=== PATIENT | male | born 1960 | race African-American/Black ===

== ENCOUNTER 2018-02-26 21:43 | Emergency (ER) | payer OTHER ==
[2018-02-26] MEDS ORDERED: chlordiazePOXIDE HCL 25 MG CAPSULE PO ONE (23:07)
[2018-02-26] MEDS ORDERED: SODIUM CHLORIDE 1,000 ML IV STA (23:07)
[2018-02-26] MEDS ORDERED: chlordiazePOXIDE HCL 25 MG CAPSULE ONE (23:22)
--- NOTE | 2018-02-26 23:23 | PDOC ---
*Physical Exam - Physical Exam Comments: 02/26/18 23:22 The patient was examined by KALIE Mcallister under my direct supervision. I personally evaluated the patient. I concur with the above findings and the plan of care. ED Treatment Course - LABORATORY CBC & Chemistry Diagram: 02/27/18 00:00 02/27/18 00:00 *DC/Admit/Observation/Transfer Diagnosis at time of Disposition: Alcohol intoxication - Discharge Dispostion Disposition: HOME Condition at time of disposition: Stable - Referrals - Patient Instructions Printed Discharge Instructions: DI for Alcohol Abuse - Post Discharge Activity
--- NOTE | 2018-02-26 23:25 | PDOC ---
History of Present Illness - General Chief Complaint: Alcohol intoxication Stated Complaint: Alcohol intoxication Time Seen by Provider: 02/26/18 22:49 History Source: Patient Exam Limitations: No Limitations Past History - Past Medical History Allergies/Adverse Reactions: Allergies Allergy/AdvReac Type Severity Reaction Status Date / Time codeine [Codeine] Allergy Intermediate passed out Verified 02/26/18 20:31 Home Medications: Ambulatory Orders NK [No Known Home Medication] 02/26/18 Anemia: No Asthma: No Cancer: No Cardiac Disorders: No CVA: No COPD: No CHF: No Dementia: No Diabetes: No GI Disorders: No Disorders: No HTN: Yes (BP: 132/82) Hypercholesterolemia: No Kidney Stones: No Liver Disease: No Seizures: No Thyroid Disease: No - Surgical History Abdominal Surgery: No Appendectomy: No Cardiac Surgery: No Cholecystectomy: No Lung Surgery: No Neurologic Surgery: No Orthopedic Surgery: No - Reproductive History Testicular Surgery: No - Immunization History Td Vaccination: Yes Immunization Up to Date: Yes - Suicide/Smoking/Psychosocial Hx Smoking Status: Yes Smoking History: Never smoked Have you smoked in the past 12 months: No Number of Cigarettes Smoked Daily: 0 'Breaking Loose' booklet given: 04/04/14 Hx Alcohol Use: Yes Drug/Substance Use Hx: No Substance Use Type: Alcohol Hx Substance Use Treatment: Yes *Physical Exam - Physical Exam General Appearance: Yes: Intoxicated (Appears intoxicated). No: Apparent Distress, Disheveled HEENT: positive: OSWALDO Neck: positive: Supple. negative: Rigid, Rigidity, Tender midline Respiratory/Chest: positive: Lungs Clear, Normal Breath Sounds. negative: Respiratory Distress Cardiovascular: positive: Regular Rhythm, Regular Rate, S1, S2. negative: Murmur Gastrointestinal/Abdominal: positive: Normal Bowel Sounds, Soft. negative: Tender, Distended, Guarding, Rebound Extremity: positive: Other (No evidence of trauma to extremities; BLE venous stasis, no open wounds noted) Neurologic: positive: Fully Oriented, Alert ED Treatment Course - LABORATORY CBC & Chemistry Diagram: 02/27/18 00:00 02/27/18 00:00 Medical Decision Making - Medical Decision Making 57 y/o M with hx alcohol abuse presents as walked to [facility] but was sent to ED due to elevated VINNY. Patient mentions his last drink was yesterday morning. Mentions he has been drinking heavily for the past few days, but did not drink today. Mentions he wants to quit drinking and is interested in detox. Denies fever, sob, cp, abd pain, n/v, headache. On PE, patient with no evidence of withdrawal and is currently Ox3 Plan: CBC, CMP, alcohol level, Mg, IVF, PO Librium 02/26/18 23:46 Labs reviewed - K was repleted, Mg normal; LFTs elevated, but have been elevated in the past (were higher in the past) Patient with slight diaphoresis, tachycardia (HR in 115), BP normal; no tongue fasciculation or hand tremors noted To prevent withdrawal, patient given Ativan 2 mg and another dose of PO Librium 50 mg 02/27/18 03:00 Patient reassessed, feeling better HR 95-99; BP normal No evidence of withdrawal noted Stable for d/c 02/27/18 06:35 *DC/Admit/Observation/Transfer Diagnosis at time of Disposition: Alcohol intoxication Qualifiers: Complication of substance-induced condition: uncomplicated Qualified Code(s): F10.920 - Alcohol use, unspecified with intoxication, uncomplicated - Discharge Dispostion Disposition: HOME Condition at time of disposition: Stable Decision to Admit order: No - Referrals - Patient Instructions Printed Discharge Instructions: DI for Alcohol Abuse - Post Discharge Activity
[2018-02-26] MEDS ORDERED: FOLIC ACID INJECTION - 1 MG, THIAMINE HCL 100 MG, MULTIVIT INJECTION ADULT 10 ML in SOD... IVPB ONE (23:26)
[2018-02-27 01:09] LABS: BASO % 0.8 % (0-2.0); EOS % 0.2 % (0-4.5); HEMATOCRIT 40.6 % (35.4-49); HEMOGLOBIN 13.5 GM/dL (11.7-16.9); LYMPH % 46.2 % (8-40); MCH 27.1 pg (25.7-33.7); MCHC 33.3 g/dl (32.0-35.9); MEAN CELL VOLUME 81.2 fl (80-96); MEAN PLT VOLUME 11.4 fl (7.5-11.1); MONO % 7.8 % (3.8-10.2); PLATELET COUNT 77 K/MM3 (134-434); RDW 14.6 % (11.9-15.9); WHITE BLOOD COUNT 4.3 K/mm3 (4.0-10.0)
[2018-02-27 01:16] VITALS: BMI 29.5
[2018-02-27 01:57] LABS: ALBUMIN 3.9 g/dl (3.4-5.0); ALK PHOS 76 U/L (45-117); ANION GAP 13 MMOL/L (8-16); BLOOD UREA NITROGEN 11 mg/dL (7-18); CALCIUM 8.2 mg/dL (8.5-10.1); CHLORIDE 96 mmol/L (98-107); CO2 28 mmol/L (21-32); CREATININE 0.7 mg/dL (0.55-1.3); GLUCOSE,RANDOM 109 mg/dL (74-106); MAGNESIUM 2.3 mg/dL (1.8-2.4); POTASSIUM 3.1 mmol/L (3.5-5.1); SGOT/AST 212 U/L (15-37); SGPT/ALT 84 U/L (13-61); SODIUM 138 mmol/L (136-145); TOT PROT 8.2 g/dl (6.4-8.2)
[2018-02-27 01:58] VITALS: BP 111/76; PULSE 101; TEMP 98
[2018-02-27] MEDS ORDERED: POTASSIUM CHLORIDE ORAL LIQUID 20 MEQ/15 ML PO ONE (02:15)
[2018-02-27] MEDS ORDERED: POTASSIUM CHLORIDE ORAL LIQUID 20 MEQ/15 ML ONE (02:28)
[2018-02-27] MEDS ORDERED: chlordiazePOXIDE HCL 25 MG CAPSULE PO ONE (03:10)
[2018-02-27] MEDS ORDERED: chlordiazePOXIDE HCL 25 MG CAPSULE ONE (03:13)
[2018-02-27] MEDS ORDERED: LORazepam 2 MG/ML SDV VIAL ONE (03:13)
== END 2018-02-27 06:59 | disposition home or self-care (01) ==
LOC: JER 21:43
PROC: 3E033GC Introduction of Other Therapeutic Substance into Peripheral Vein, Percutaneous Approach (ICD-10-PCS; principal; 2018-02-26)
PROC: 3E033NZ Introduction of Analgesics, Hypnotics, Sedatives into Peripheral Vein, Percutaneous Approach (ICD-10-PCS; 2018-02-26)
DX: F10.920 Alcohol use, unspecified with intoxication, uncomplicated (principal); I10 Essential (primary) hypertension
CPT/HCPCS: 36415; 80053; 80307; 83735; 85025; 96365; 96375; 99283-25; J7030

== ENCOUNTER 2018-02-27 09:52 | Emergency (ER) | payer OTHER ==
[2018-02-27 10:11] VITALS: TEMP 98.2; BMI 29.5
[2018-02-27] MEDS ORDERED: chlordiazePOXIDE HCL 25 MG CAPSULE PO ONE (10:43)
[2018-02-27] MEDS ORDERED: chlordiazePOXIDE HCL 25 MG CAPSULE ONE (10:56)
--- NOTE | 2018-02-27 10:59 | PDOC ---
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 detox secondary to level of intoxication. Patient states was fine sitting waiting for his mother who never came when he developed slight tremors causing him to reregister here in the ER. Patient does want to go to a detox program denies any chest pain, shortness of breath, headache, nausea, diarrhea or dizziness. Timing/Duration: changing over time Severity: mild Associated Symptoms: reports: denies symptoms Past History - Travel Traveled outside of the country in the last 30 days: No - Past Medical History Allergies/Adverse Reactions: Allergies Allergy/AdvReac Type Severity Reaction Status Date / Time codeine [Codeine] Allergy Intermediate passed out Verified 02/27/18 10:11 Home Medications: Ambulatory Orders NK [No Known Home Medication] 02/26/18 Anemia: No Asthma: No Cancer: No Cardiac Disorders: No CVA: No COPD: No CHF: No Dementia: No Diabetes: No GI Disorders: No Disorders: No HTN: Yes (BP: 132/82) Hypercholesterolemia: No Kidney Stones: No Liver Disease: No Seizures: No Thyroid Disease: No - Surgical History Abdominal Surgery: No Appendectomy: No Cardiac Surgery: No Cholecystectomy: No Lung Surgery: No Neurologic Surgery: No Orthopedic Surgery: No - Reproductive History Testicular Surgery: No - Immunization History Td Vaccination: Yes Immunization Up to Date: Yes - Suicide/Smoking/Psychosocial Hx Smoking Status: Yes Smoking History: Never smoked Have you smoked in the past 12 months: No Number of Cigarettes Smoked Daily: 0 Information on smoking cessation initiated: No 'Breaking Loose' booklet given: 04/04/14 Hx Alcohol Use: No Drug/Substance Use Hx: No Substance Use Type: Alcohol Hx Substance Use Treatment: Yes Patient Lives Alone: No Lives with/in: parents (mother) Review of Systems - Review of Systems Able to Perform ROS?: No Constitutional: No: Symptoms Reported, Weakness HEENTM: No: Symptoms Reported Respiratory: No: Symptoms reported Cardiac (ROS): No: Symptoms Reported ABD/GI: No: Symptoms Reported : No: Symptoms Reported Musculoskeletal: No: Symptoms Reported Integumentary: No: Symptoms Reported Neurological: Yes: Tremors Endocrine: No: Symptoms Reported *Physical Exam - Vital Signs Last Vital Signs Temp Pulse Resp BP Pulse Ox 98.2 F 109 H 16 120/80 100 02/27/18 09:52 02/27/18 09:52 02/27/18 09:52 02/27/18 09:52 02/27/18 09:52 - Physical Exam General Appearance: Yes: Nourished, Appropriately Dressed, Alcohol on Breath. No: Apparent Distress HEENT: negative: Pale Conjunctivae Neck: positive: Supple Respiratory/Chest: positive: Lungs Clear, Normal Breath Sounds. negative: Respiratory Distress, Accessory Muscle Use Cardiovascular: positive: Regular Rhythm, Tachycardia. negative: Murmur Gastrointestinal/Abdominal: positive: Soft. negative: Tenderness Musculoskeletal: negative: CVA Tenderness Extremity: positive: Normal Capillary Refill. negative: Pedal Edema Neurologic: positive: Normal Mood/Affect, Motor Strength 5/5 (ambulatory), Other (noted fine tremors to BUE during exam) Moderate Sedation - Procedure Monitoring Vital Signs: Procedure Monitoring Vital Signs Temperature 98.2 F 02/27/18 09:52 Pulse Rate 109 H 02/27/18 09:52 Respiratory Rate 16 02/27/18 09:52 Blood Pressure 120/80 02/27/18 09:52 O2 Sat by Pulse Oximetry (%) 100 02/27/18 09:52 Medical Decision Making - Medical Decision Making 02/27/18 10:18 Chief complaint: requesting detox and something for the "shakes" Exam: patient with noted fine tremors to bilateral upper extremities. Plan: Librium 25 mg ordered since he was given 1 mg Ativan along with 50 mg of Librium last evening. Patient will be sent directly to [facility] 02/27/18 11:19 Patient will be sent with security to [facility]. *DC/Admit/Observation/Transfer Diagnosis at time of Disposition: Alcohol dependence, episodic drinking behavior - Discharge Dispostion Disposition: HOME Condition at time of disposition: Good - Referrals - Patient Instructions Printed Discharge Instructions: DI for Alcohol Abuse Additional Instructions: Please utilize all resources to avoid alcohol use. Your given a dose of Librium at 11 AM . - Post Discharge Activity
[2018-02-27 11:02] VITALS: BP 117/86; PULSE 115
== END 2018-02-27 11:09 | disposition home or self-care (01) ==
LOC: JER 09:52
DX: F10.20 Alcohol dependence, uncomplicated (principal)
CPT/HCPCS: 99281-25

== ENCOUNTER 2018-02-27 12:27 | Inpatient (IN) | payer OTHER ==
[2018-02-27 12:55] VITALS: BMI 31.8
--- NOTE | 2018-02-27 13:09 | HP ---
CIWA Score Nausea/Vomitin Muscle Tremors: 7-Severe,w/o Arm Extended Anxiety: 4-Mod. Anxious/Guarded Agitation: 2 Paroxysmal Sweats: 4-Forehead w/Sweat Beads Orientation: 3-Disoriented Date>2 days Tacttile Disturbances: 0-None Auditory Disturbances: 0-None Visual Disturbances: 0-None Headache: 2-Mild CIWA-Ar Total Score: 24 - Admission Criteria OASAS Guidelines: Admission for Medically Managed Detox: Requires at least one of the followin. CIWA greater than 12 2. Seizures within the past 24 hours 3. Delirium tremens within the past 24 hours 4. Hallucinations within the past 24 hours 5. Acute intervention needed for co occurring medical disorder 6. Acute intervention needed for co occurring psychiatric disorder 7. Severe withdrawal that cannot be handled at a lower level of care (continued vomiting, continued diarrhea, abnormal vital signs) requiring intravenous medication and/or fluids 8. 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 Current VINNY 0.071 , pt states he was in [facility] since yesterday evening , sent from this facility . Utox + bzo PMHX : PVD PShx :denies Psych : denies Meds : denies , seeing vascular , was given inez boot in the past , currently HARJINDER bandage . SHx : lives w/ sister , unemployed Exam Limitations: Clinical Condition, Intoxication - Ebola screening Have you traveled outside of the country in the last 21 days: No Have you had contact with anyone from an Ebola affected area: No Have you been sick,other than usual withdrawal symptoms: No - Review of Systems Constitutional: See HPI EENT: reports: No Symptoms Reported Respiratory: reports: No Symptoms reported Cardiac: reports: No Symptoms Reported GI: reports: See HPI, Nausea : reports: No Symptoms Reported Musculoskeletal: reports: Joint Pain Integumentary: reports: See HPI, Dryness, Rash, Other (PVD) Neuro: reports: See HPI, Tremors, Unsteady Gait, Ataxia Endocrine: reports: No Symptoms Reported Psychiatric: reports: Orientated x3, Agitated, Anxious Patient History - Patient Medical History Hx Anemia: No Hx Asthma: No Hx Chronic Obstructive Pulmonary Disease (COPD): No Hx Cancer: No Hx Cardiac Disorders: No Hx Congestive Heart Failure: No Hx Hypertension: No Hx Hypercholesterolemia: No Hx Pacemaker: No HX Cerebrovascular Accident: No Hx Seizures: No Hx Dementia: No Hx Diabetes: No Hx Gastrointestinal Disorders: No Hx Liver Disease: No Hx Genitourinary Disorders: No Hx Sexually Transmitted Disorders: No Hx Renal Disease (ESRD): No Hx Thyroid Disease: No Hx Human Immunodeficiency Virus (HIV): No (negative) Hx Hepatitis C: No Hx Depression: No Hx Suicide Attempt: No Hx Bipolar Disorder: No Hx Schizophrenia: No - Patient Surgical History Past Surgical History: No Hx Neurologic Surgery: No Hx Cataract Extraction: No Hx Cardiac Surgery: No Hx Lung Surgery: No Hx Breast Surgery: No Hx Breast Biopsy: No Hx Abdominal Surgery: No Hx Appendectomy: No Hx Cholecystectomy: No Hx Genitourinary Surgery: No Hx Section: No Hx Orthopedic Surgery: No Anesthesia Reaction: No - PPD History Previous Implant?: Yes Documented Results: Negative w/o proof Implanted On Prior [facility] Admission?: No Date: 01/20/14 Results: 0 MM - Smoking Cessation Smoking history: Never smoked Have you smoked in the past 12 months: No Aproximately how many cigarettes per day: 0 Hx Chewing Tobacco Use: No - Substances Abused Alcohol Route: Oral Frequency: Daily Amount used: 2 pints vodka Age of first use: 20 Date of Last Use: 02/27/18 Family Disease History - Family Disease History Family Disease History: Diabetes: Mother Admission Physical Exam S - Vital Signs Vital Signs: Vital Signs - 24 hr 02/27/18 12:51 Temperature 99.3 F Pulse Rate 99 H Respiratory 18 Rate Blood Pressure 134/81 - Physical General Appearance: Yes: Disheveled, Severe Distress, Intoxicated, Tremorous, Sweating, Anxious HEENTM: Yes: EOMI, Hearing grossly Normal, Normocephalic, Normal Voice Respiratory: Yes: Chest Non-Tender, Lungs Clear, Normal Breath Sounds Neck: Yes: No masses,lesions,Nodules, Trachea in good position Breast: Yes: Breast Exam Deferred Cardiology: Yes: Regular Rhythm, Regular Rate, S1, S2, Tachycardia Abdominal: Yes: Normal Bowel Sounds, Non Tender, Soft Genitourinary: Yes: Within Normal Limits Back: Yes: Normal Inspection Musculoskeletal: Yes: full range of Motion, Other (staggering gait) Extremities: Yes: Pedal Edema, Erythema, Inflammation, Other (barrera LE edema, hyperpigmentation , chronic stasis changes) Neurological: Yes: Confused, Disoriented Integumentary: Yes: Dry, Erythema, Rash, Other (as above) - Diagnostic (1) Alcohol intoxication Current Visit: No Status: Acute Qualifiers: Complication of substance-induced condition: uncomplicated Qualified Code(s ): F10.920 - Alcohol use, unspecified with intoxication, uncomplicated (2) Alcohol dependence Current Visit: No Status: Acute Qualifiers: Substance use status: in withdrawal BHS Breath Alcohol Content Breath Alcohol Content: 0.071 Urine Drug Screen - Results Urine Drug Screen Results: BZO-Benzodiazepines
[2018-02-27] MEDS ORDERED: MAGNESIUM HYDROX 2400MG/30ML ORAL SUSPENSION 30 ML CUP PO PRN (13:15)
[2018-02-27] MEDS ORDERED: P-EPHED 60MG/TRIPROLIDI 2.5MG TABLET PO PRN (13:15)
[2018-02-27] MEDS ORDERED: ACETAMINOPHEN 325 MG TABLET (FP) PO PRN (13:15)
[2018-02-27] MEDS ORDERED: MAG HYDROX/AL HYDROX/SIMETH 30 ML UNIT-DOSE CUP PO PRN (13:15)
[2018-02-27] MEDS ORDERED: IBUPROFEN 400 MG TABLET (FP) PO PRN (13:15)
[2018-02-27] MEDS ORDERED: MENTHOL/PHENOL 1 EACH UD MM PRN (13:15)
[2018-02-27] MEDS ORDERED: guaiFENesin/D-METHORPHAN HB 10 ML UNIT-DOSE CUPS PO PRN (13:15)
[2018-02-27] MEDS ORDERED: MAGNESIUM CITRATE 300 ML BOTTLE PO PRN (13:15)
[2018-02-27] MEDS ORDERED: METOPROLOL TARTRATE 25 MG TABLET (FP) PO ONE (14:00)
[2018-02-27] MEDS ORDERED: chlordiazePOXIDE HCL 25 MG CAPSULE PO ONE (14:00)
[2018-02-27] MEDS: chlordiazePOXIDE HCL 25 MG CAPSULE PO SCH ×2 (17:26→22:28)
[2018-02-27] MEDS: chlordiazePOXIDE HCL 25 MG CAPSULE PO PRN (21:13)
[2018-02-27] MEDS: MELATONIN 5 MG TABLETS PO PRN (22:28)
[2018-02-27] MEDS: THIAMINE HCL 100 MG TABLET (FP) PO SCH (22:28)
[2018-02-28] MEDS: chlordiazePOXIDE HCL 25 MG CAPSULE PO SCH ×4 (05:53→22:30)
[2018-02-28] MEDS ORDERED: TRIMETHOBENZAMIDE HCL 200MG/2ML INJ IM ONE (10:30)
[2018-02-28 10:58] LABS: HEMOGLOBIN 12.5 GM/dL (11.7-16.9); MCH 25.8 pg (25.7-33.7); MCHC 31.2 g/dl (32.0-35.9); MEAN CELL VOLUME 82.7 fl (80-96)
[2018-02-28 11:02] LABS: MEAN PLT VOLUME 10.2 fl (7.5-11.1); PLATELET COUNT 40 K/MM3 (134-434); RBC 4.83 M/mm3 (4.00-5.60); RDW 14.5 % (11.9-15.9); WHITE BLOOD COUNT 3.1 K/mm3 (4.0-10.0)
[2018-02-28 11:15] LABS: ALBUMIN 3.5 g/dl (3.4-5.0); ALK PHOS 67 U/L (45-117); ANION GAP 10 MMOL/L (8-16); BILIRUBIN,TOTAL 1.9 mg/dL (0.2-1); BLOOD UREA NITROGEN 9 mg/dL (7-18); CALCIUM 8.5 mg/dL (8.5-10.1); CHLORIDE 96 mmol/L (98-107); CO2 29 mmol/L (21-32); CREATININE 0.7 mg/dL (0.55-1.3); GLUCOSE,RANDOM 117 mg/dL (74-106); SGOT/AST 167 U/L (15-37); SGPT/ALT 74 U/L (13-61); SODIUM 135 mmol/L (136-145); TOT PROT 7.6 g/dl (6.4-8.2)
[2018-02-28] MEDS: PRENATAL VITAMINS W/ FOLIC ACID TABLET (FP) PO SCH (11:47)
[2018-02-28 11:51] LABS: POTASSIUM 2.7 mmol/L (3.5-5.1)
--- NOTE | 2018-02-28 13:48 | PN ---
S CIWA - CIWA Score Nausea/Vomitin Muscle Tremors: 2 Anxiety: 2 Agitation: 2 Paroxysmal Sweats: 2 Orientation: 0-Oriented Tacttile Disturbances: 2-Mild Itch/Numbness/Burn Auditory Disturbances: 1-Very Mild Visual Disturbances: 1-Very Mild Sensitivity Headache: 1-Very Mild CIWA-Ar Total Score: 16 BHS Progress Note (SOAP) Subjective: N/V, sweats, stuffy nose and interrupted sleep Objective: 02/28/18 13:45 Vital Signs Temperature 98.0 F 02/28/18 10:44 Pulse Rate 113 H 02/28/18 10:44 Respiratory Rate 18 02/28/18 10:44 Blood Pressure 145/95 02/28/18 10:44 O2 Sat by Pulse Oximetry (%) Laboratory Last Values WBC 3.1 K/mm3 (4.0-10.0) L 02/28/18 07:40 RBC 4.83 M/mm3 (4.00-5.60) 02/28/18 07:40 Hgb 12.5 GM/dL (11.7-16.9) 02/28/18 07:40 Hct 40.0 % (35.4-49) 02/28/18 07:40 MCV 82.7 fl (80-96) 02/28/18 07:40 MCH 25.8 pg (25.7-33.7) 02/28/18 07:40 MCHC 31.2 g/dl (32.0-35.9) L 02/28/18 07:40 RDW 14.5 % (11.9-15.9) 02/28/18 07:40 Plt Count 40 K/MM3 (134-434) L D 02/28/18 07:40 MPV 10.2 fl (7.5-11.1) D 02/28/18 07:40 Sodium 135 mmol/L (136-145) L 02/28/18 07:40 Potassium 2.7 mmol/L (3.5-5.1) L* 02/28/18 07:40 Chloride 96 mmol/L (98-107) L 02/28/18 07:40 Carbon Dioxide 29 mmol/L (21-32) 02/28/18 07:40 Anion Gap 10 MMOL/L (8-16) 02/28/18 07:40 BUN 9 mg/dL (7-18) 02/28/18 07:40 Creatinine 0.7 mg/dL (0.55-1.3) 02/28/18 07:40 Creat Clearance w eGFR > 60 (>60) 02/28/18 07:40 Random Glucose 117 mg/dL (74-106) H 02/28/18 07:40 Calcium 8.5 mg/dL (8.5-10.1) 02/28/18 07:40 Total Bilirubin 1.9 mg/dL (0.2-1) H 02/28/18 07:40 AST 167 U/L (15-37) H 02/28/18 07:40 ALT 74 U/L (13-61) H 02/28/18 07:40 Alkaline Phosphatase 67 U/L (45-117) 02/28/18 07:40 Total Protein 7.6 g/dl (6.4-8.2) 02/28/18 07:40 Albumin 3.5 g/dl (3.4-5.0) 02/28/18 07:40 Labs noted; abnormal potassium level Assessment: 02/28/18 13:46 Withdrawal sx Hypokalemia Plan: Continue detox Potassium supplement 40meq PO QD starting today Repeat BMP on 03/02
[2018-02-28] MEDS: POTASSIUM CHLORIDE TABS 20 MEQ TABLET.ER (FP) PO SCH (15:07)
[2018-02-28] MEDS ORDERED: LOPERAMIDE HCL 2 MG CAPSULE PO ONE (17:56)
--- NOTE | 2018-02-28 17:58 | PN ---
BHS Progress Note Note: Imodium 2mg ordered for pt's diarrhea
[2018-02-28] MEDS: chlordiazePOXIDE HCL 25 MG CAPSULE PO PRN (20:55)
[2018-02-28] MEDS: THIAMINE HCL 100 MG TABLET (FP) PO SCH (22:29)
[2018-02-28] MEDS: MELATONIN 5 MG TABLETS PO PRN (22:31)
[2018-03-01] MEDS: chlordiazePOXIDE HCL 25 MG CAPSULE PO PRN ×2 (01:50→20:53)
[2018-03-01] MEDS: chlordiazePOXIDE HCL 25 MG CAPSULE PO SCH ×2 (06:28→10:02)
[2018-03-01] MEDS: PRENATAL VITAMINS W/ FOLIC ACID TABLET (FP) PO SCH (10:00)
[2018-03-01] MEDS: POTASSIUM CHLORIDE TABS 20 MEQ TABLET.ER (FP) PO SCH (10:03)
[2018-03-01] MEDS ORDERED: LOPERAMIDE HCL 2 MG CAPSULE PO ONE (11:05)
[2018-03-01] MEDS: PANTOPRAZOLE 40 MG TABLET (FP) PO SCH (11:47)
[2018-03-01] MEDS: hydrOXYzine PAMOATE 50 MG CAPSULE (FP) PO PRN ×2 (13:27→19:30)
[2018-03-01] MEDS: cloNIDine HCL 0.1 MG TABLET PO PRN ×2 (13:27→22:37)
[2018-03-01] MEDS ORDERED: LOPERAMIDE HCL 2 MG CAPSULE PO PRN (14:00)
[2018-03-01] MEDS: chlordiazePOXIDE 5 MG CAPSULE PO SCH ×2 (17:34→22:35)
--- NOTE | 2018-03-01 17:55 | PN ---
S CIWA - CIWA Score Nausea/Vomitin Muscle Tremors: 4-Moderate,w/Arms Extend Anxiety: 4-Mod. Anxious/Guarded Agitation: 4-Moderately Restless Paroxysmal Sweats: 3 Orientation: 0-Oriented Tacttile Disturbances: 1-Very Mild Itch/Numbness Auditory Disturbances: 0-None Visual Disturbances: 0-None Headache: 0-None Present CIWA-Ar Total Score: 18 BHS Progress Note (SOAP) Subjective: Stomach ache, diarrhea, interrupted sleep, poor appetite, sweating, chills, tremor, anxious Objective: 03/01/18 17:48 Last Vital Signs Temp Pulse Resp BP Pulse Ox 97.6 F 113 H 183 H 128/83 03/01/18 13:43 03/01/18 13:43 03/01/18 13:43 03/01/18 13:43 Laboratory Tests 02/28/18 02/28/18 02/28/18 07:40 07:40 07:40 WBC 3.1 L RBC 4.83 Hgb 12.5 Hct 40.0 MCV 82.7 MCH 25.8 MCHC 31.2 L RDW 14.5 Plt Count 40 L D MPV 10.2 D Sodium 135 L Potassium 2.7 L* Chloride 96 L Carbon Dioxide 29 Anion Gap 10 BUN 9 Creatinine 0.7 Creat Clearance w eGFR > 60 Random Glucose 117 H Calcium 8.5 Total Bilirubin 1.9 H AST 167 H ALT 74 H Alkaline Phosphatase 67 Total Protein 7.6 Albumin 3.5 RPR Titer Nonreactive Labs reviewed: K 2.7, plt 40, AST 167, total bilirubin 1.9 Assessment: 03/01/18 17:51 Withdrawal symptoms Noted with hypokalemia, thrombocytopenia, elevated LFTs (AST, total bilirubin) Plan: Continue detox Encouraged PO water intake Hypokalemia: K Dur 40 Meq PO liquid x 3 doses (at least 4 hours apart) then 20 Meq PO daily, K level in AM Thrombocytopenia: most likely due to alcohol dependence; patient has h/o thrombocytopenia; follow up with PCP for monitoring. Elevated LFTs (AST, total bilirubin): most likely due to alcohol dependence; repeat AST, total bilirubin
[2018-03-01] MEDS: THIAMINE HCL 100 MG TABLET (FP) PO SCH (22:36)
[2018-03-02] MEDS: chlordiazePOXIDE 5 MG CAPSULE PO SCH ×2 (05:50→10:14)
[2018-03-02] MEDS: PANTOPRAZOLE 40 MG TABLET (FP) PO SCH (10:14)
[2018-03-02] MEDS: PRENATAL VITAMINS W/ FOLIC ACID TABLET (FP) PO SCH (10:14)
[2018-03-02] MEDS: POTASSIUM CHLORIDE TABS 20 MEQ TABLET.ER (FP) PO SCH (10:14)
[2018-03-02 10:26] LABS: ANION GAP 10 MMOL/L (8-16); BILIRUBIN,TOTAL 1.4 mg/dL (0.2-1); BLOOD UREA NITROGEN 11 mg/dL (7-18); CALCIUM 9.2 mg/dL (8.5-10.1); CHLORIDE 102 mmol/L (98-107); CO2 27 mmol/L (21-32); CREATININE 0.8 mg/dL (0.55-1.3); GLUCOSE,RANDOM 131 mg/dL (74-106); POTASSIUM 3.5 mmol/L (3.5-5.1); SGOT/AST 97 U/L (15-37); SODIUM 139 mmol/L (136-145)
[2018-03-02] MEDS: hydrOXYzine PAMOATE 50 MG CAPSULE (FP) PO PRN ×2 (13:02→20:03)
--- NOTE | 2018-03-02 14:26 | PN ---
BHS Progress Note (SOAP) Subjective: feeling better no tremor less sweat no gi distress longest sobriety 2 years agrees to continue community self help support meeting and group Objective: 03/02/18 14:26 Vital Signs Temperature 97.6 F 03/02/18 13:10 Pulse Rate 101 H 03/02/18 13:10 Respiratory Rate 18 03/02/18 13:10 Blood Pressure 116/77 03/02/18 13:10 O2 Sat by Pulse Oximetry (%) Laboratory Last Values WBC 3.1 K/mm3 (4.0-10.0) L 02/28/18 07:40 RBC 4.83 M/mm3 (4.00-5.60) 02/28/18 07:40 Hgb 12.5 GM/dL (11.7-16.9) 02/28/18 07:40 Hct 40.0 % (35.4-49) 02/28/18 07:40 MCV 82.7 fl (80-96) 02/28/18 07:40 MCH 25.8 pg (25.7-33.7) 02/28/18 07:40 MCHC 31.2 g/dl (32.0-35.9) L 02/28/18 07:40 RDW 14.5 % (11.9-15.9) 02/28/18 07:40 Plt Count 40 K/MM3 (134-434) L D 02/28/18 07:40 MPV 10.2 fl (7.5-11.1) D 02/28/18 07:40 Sodium 139 mmol/L (136-145) 03/02/18 07:00 Potassium 3.5 mmol/L (3.5-5.1) 03/02/18 07:00 Chloride 102 mmol/L (98-107) 03/02/18 07:00 Carbon Dioxide 27 mmol/L (21-32) 03/02/18 07:00 Anion Gap 10 MMOL/L (8-16) 03/02/18 07:00 BUN 11 mg/dL (7-18) 03/02/18 07:00 Creatinine 0.8 mg/dL (0.55-1.3) 03/02/18 07:00 Creat Clearance w eGFR > 60 (>60) 03/02/18 07:00 Random Glucose 131 mg/dL (74-106) H 03/02/18 07:00 Calcium 9.2 mg/dL (8.5-10.1) 03/02/18 07:00 Total Bilirubin 1.4 mg/dL (0.2-1) H 03/02/18 07:00 AST 97 U/L (15-37) H 03/02/18 07:00 ALT 74 U/L (13-61) H 02/28/18 07:40 Alkaline Phosphatase 67 U/L (45-117) 02/28/18 07:40 Total Protein 7.6 g/dl (6.4-8.2) 02/28/18 07:40 Albumin 3.5 g/dl (3.4-5.0) 02/28/18 07:40 RPR Titer Nonreactive (NONREACTIVE) 02/28/18 07:40 lab noted Assessment: 03/02/18 14:30 mild withdrawal sx Plan: medically supervised detox
[2018-03-02] MEDS: chlordiazePOXIDE HCL 10 MG CAPSULE PO SCH ×2 (16:36→22:15)
[2018-03-02] MEDS: THIAMINE HCL 100 MG TABLET (FP) PO SCH (22:16)
[2018-03-02] MEDS: MELATONIN 5 MG TABLETS PO PRN (22:18)
[2018-03-02] MEDS: cloNIDine HCL 0.1 MG TABLET PO PRN (22:18)
[2018-03-03] MEDS: hydrOXYzine PAMOATE 50 MG CAPSULE (FP) PO PRN (06:05)
[2018-03-03] MEDS: chlordiazePOXIDE HCL 10 MG CAPSULE PO SCH (06:05)
[2018-03-03 09:20] VITALS: BP 141/74; PULSE 91; TEMP 96.8
[2018-03-03] MEDS: PRENATAL VITAMINS W/ FOLIC ACID TABLET (FP) PO SCH (09:33)
[2018-03-03] MEDS: POTASSIUM CHLORIDE TABS 20 MEQ TABLET.ER (FP) PO SCH (09:33)
[2018-03-03] MEDS: PANTOPRAZOLE 40 MG TABLET (FP) PO SCH (09:34)
--- NOTE | 2018-03-03 11:08 | DS ---
[facility] Detox Discharge Summary Admission Date: 02/27/18 Discharge Date: 03/03/18 - History Present History: Alcohol Dependence Additional Comments: 57 years old male admitted on 02/27/18 for alcohol withdrawal stability completed alcohol detox regimen tolerated well alert no acute distress aftercare [facility] - Physical Exam Results Vital Signs: Vital Signs Temperature 96.8 F L 03/03/18 09:20 Pulse Rate 91 H 03/03/18 09:20 Respiratory Rate 18 03/03/18 09:20 Blood Pressure 141/74 03/03/18 09:20 O2 Sat by Pulse Oximetry (%) Pertinent Admission Physical Exam Findings: alcohol withdrawal sx Vital Signs Temperature 96.8 F L 03/03/18 09:20 Pulse Rate 91 H 03/03/18 09:20 Respiratory Rate 18 03/03/18 09:20 Blood Pressure 141/74 03/03/18 09:20 O2 Sat by Pulse Oximetry (%) Laboratory Last Values WBC 3.1 K/mm3 (4.0-10.0) L 02/28/18 07:40 RBC 4.83 M/mm3 (4.00-5.60) 02/28/18 07:40 Hgb 12.5 GM/dL (11.7-16.9) 02/28/18 07:40 Hct 40.0 % (35.4-49) 02/28/18 07:40 MCV 82.7 fl (80-96) 02/28/18 07:40 MCH 25.8 pg (25.7-33.7) 02/28/18 07:40 MCHC 31.2 g/dl (32.0-35.9) L 02/28/18 07:40 RDW 14.5 % (11.9-15.9) 02/28/18 07:40 Plt Count 40 K/MM3 (134-434) L D 02/28/18 07:40 MPV 10.2 fl (7.5-11.1) D 02/28/18 07:40 Sodium 139 mmol/L (136-145) 03/02/18 07:00 Potassium 3.5 mmol/L (3.5-5.1) 03/02/18 07:00 Chloride 102 mmol/L (98-107) 03/02/18 07:00 Carbon Dioxide 27 mmol/L (21-32) 03/02/18 07:00 Anion Gap 10 MMOL/L (8-16) 03/02/18 07:00 BUN 11 mg/dL (7-18) 03/02/18 07:00 Creatinine 0.8 mg/dL (0.55-1.3) 03/02/18 07:00 Creat Clearance w eGFR > 60 (>60) 03/02/18 07:00 Random Glucose 131 mg/dL (74-106) H 03/02/18 07:00 Calcium 9.2 mg/dL (8.5-10.1) 03/02/18 07:00 Total Bilirubin 1.4 mg/dL (0.2-1) H 03/02/18 07:00 AST 97 U/L (15-37) H 03/02/18 07:00 ALT 74 U/L (13-61) H 02/28/18 07:40 Alkaline Phosphatase 67 U/L (45-117) 02/28/18 07:40 Total Protein 7.6 g/dl (6.4-8.2) 02/28/18 07:40 Albumin 3.5 g/dl (3.4-5.0) 02/28/18 07:40 RPR Titer Nonreactive (NONREACTIVE) 02/28/18 07:40 lab noted patient agrees [facility] for medical and mental issues - Treatment Hospital Course: Detox Protocol Followed, Detoxed Safely, Responded well, Discharged Condition Good, Rehab Referral Accepted Patient has Accepted a Re[facility] Referral to: [facility] - Medication Discharge Medications: Ambulatory Orders NK [No Known Home Medication] 02/26/18 - Diagnosis (1) Alcohol dependence with uncomplicated withdrawal Status: Acute (2) Drug-induced mood disorder Status: Suspected (3) Nicotine dependence Status: Acute Qualifiers: Nicotine product type: cigarettes Substance use status: in withdrawal Qualified Code(s): F17.213 - Nicotine dependence, cigarettes, with withdrawal (4) GERD (gastroesophageal reflux disease) Status: Chronic Qualifiers: Esophagitis presence: without esophagitis Qualified Code(s): K21.9 - Gastro -esophageal reflux disease without esophagitis (5) Hypertension Status: Chronic Qualifiers: Hypertension type: essential hypertension Qualified Code(s): I10 - Essential (primary) hypertension - AMA Did Patient Leave Against Medical Advice: No
== END 2018-03-03 10:18 | disposition home or self-care (01) | DRG 775 ==
LOC: YASAS 12:27 → Y3N 13:15
PROC: HZ2ZZZZ Detoxification Services for Substance Abuse Treatment (ICD-10-PCS; principal; 2018-02-27)
DX: F10.230 Alcohol dependence with withdrawal, uncomplicated (principal); F10.220 Alcohol dependence with intoxication, uncomplicated; F17.210 Nicotine dependence, cigarettes, uncomplicated; F19.24 Other psychoactive substance dependence with psychoactive substance-induced mood disorder; I10 Essential (primary) hypertension; K21.9 Gastro-esophageal reflux disease without esophagitis; E87.6 Hypokalemia; D69.6 Thrombocytopenia, unspecified; I73.9 Peripheral vascular disease, unspecified; R94.5 Abnormal results of liver function studies; R00.0 Tachycardia, unspecified; Z88.5 Allergy status to narcotic agent
CPT/HCPCS: 36415; 80048; 80053; 82247; 84450; 85027; 86593; J0735